=== PATIENT | female | born 1950 | race African-American/Black ===

== ENCOUNTER 2016-08-28 10:05 | Emergency (ER) | payer MEDICAID | END 2016-08-28 12:31 | disposition home or self-care (01) | LOC: D.ER 10:05 | DX: M62.838 Other muscle spasm (principal); G44.209 Tension-type headache, unspecified, not intractable ==

== ENCOUNTER 2016-09-28 15:11 | Emergency (ER) | payer MEDICAID ==
[2016-09-28 16:59] LABS: APPEARANCE CLEAR (CLEAR); BILIRUBIN NEGATIVE (NEGATIVE); COLOR YELLOW (YELLOW); GLUCOSE NEGATIVE (NEGATIVE); KETONE NEGATIVE (NEGATIVE); LEUKOCYTE ESTERASE NEGATIVE (NEGATIVE); NITRITE NEGATIVE (NEGATIVE); PROTEIN NEGATIVE (NEGATIVE); SPECIFIC GRAVITY 1.005 (1.005-1.020); UROBILINOGEN NORMAL (NORMAL)
== END 2016-09-28 18:10 | disposition home or self-care (01) ==
LOC: D.ER 15:11
PROVIDERS: Nurse Practitioner Family
DX: S39.012A Strain of muscle, fascia and tendon of lower back, initial encounter (principal); X58.XXXA Exposure to other specified factors, initial encounter; Y93.89 Activity, other specified; Y92.89 Other specified places as the place of occurrence of the external cause; M54.30 Sciatica, unspecified side

== ENCOUNTER 2017-01-04 10:38 | Emergency (ER) | payer MEDICAID | END 2017-01-04 12:37 | disposition home or self-care (01) | LOC: D.ER 10:38 | DX: M54.16 Radiculopathy, lumbar region (principal) ==

== ENCOUNTER 2018-09-15 20:18 | Emergency (ER) | payer MEDICARE, MEDICAID ==
[~2018-09-15] VITALS: Ht 157.5 cm; Wt 95.5 kg
[2018-09-15 20:29] VITALS: Ht 157.5 cm; Wt 95.5 kg
[2018-09-15] MEDS ORDERED: BACLOFEN20 M1 PO (21:50)
[2018-09-15] MEDS ORDERED: VOLTAREN75 MG PO (21:50)
[2018-09-15 23:15] VITALS: BP 148/65
== END 2018-09-15 23:15 | disposition home or self-care (01) ==
LOC: D.ER 20:18
DX: M62.838 Other muscle spasm (principal); M79.18 Myalgia, other site